=== PATIENT | male | born 1950 | race Caucasian/White ===

== ENCOUNTER 2016-04-09 15:10 | Emergency (ER) | payer MEDICARE, OTHER ==
[~2016-04-09] VITALS: Ht 177.8 cm; Wt 109.1 kg
[2016-04-09 15:17] VITALS: BP 173/95; PULSE 55; RESP 20; O2SAT 100
--- NOTE | 2016-04-09 15:42 | ED.REPORT ---
HPI-Abd Pain M 40 and Over Date of Service Apr 09, 2016 ED Provider: Satish Barron MD Pt is a 66 y/o male w/ a hx of T2DM, hyperlipidemia, presenting to the ED c/o gradually worsening RLQ abdominal pain onset 13:00 today. He was sent from Urgent Care with concern for kidney stones. He c/o associated nausea and vomiting x1. He denies flank pain, diarrhea, fever, chills, bloody stool, hematemesis. His pain was not exacerbated with bumps in the road. He has had some urinary urgency without being able to start his stream. His pain was quite severe at time of onset but is somewhat mild-moderate at current time. He has no history of kidney stones. Nursing Notes Stated Complaint: POSSIBLE KIDNEY STONE, SENT FROM URGENT CARE Chief Complaint: Male Abdominal Pain Nursing Notes Reviewed: Yes Allergies: Coded Allergies: No Known Allergies (Unverified , 04/09/16) Scheduled Tamsulosin (Flomax) 0.4 Mg Capsule 0.4 MG PO DAILY Scheduled PRN Ondansetron ODT (Zofran ODT) 4 Mg Tablet 4 MG PO Q4H PRN PRN For Nausea oxyCODONE-Acetaminophen 5-325 mg (oxyCODONE-Acetaminophen 5-325 mg) 1 Each Tablet 1-2 TAB PO Q6H PRN PRN For Pain General Time Seen by MD: 15:39 Chief Complaint Abdominal pain Hx Obtained From: Patient Arrived By: Walk-in Sudden in Onset?: Yes Onset Occurred: 1 - 4 hours ago Symptom Duration: Since onset Progression since Onset: Gradually worsening Location: : RLQ Quality: Painful Severity: Current: Mild Severity: Maximum: Moderate Past Medical History Past Medical History NIDDM Hyperlipidemia Past Surgical History Denies Smoking History Former Smoker, Never Smoker Social History Alcohol Use: 1-3 per week Ambulatory Status Independent Review of Systems Constitutional: Denies: Chills, Fever Respiratory: Denies: Non-productive cough, Shortness of breath Cardiovascular: Denies: Chest pain GI: Reports: Abdominal pain, Nausea, Vomiting, Denies: Bloody/tarry stool, Diarrhea, Hematemesis Complete sys rev & neg: except as marked. Physical Exam Initial Vital Signs Vital Signs (First) Date Time Temp Pulse Resp B/P Pulse Ox O2 Delivery O2 Flow Rate FiO2 04/09/16 15:17 36.4 55 20 173/95 100 Room Air Initial VS: Reviewed, Vital signs abnormal Head / Eyes: Atraumatic, Normocephalic, PERRL ENT: Mucous membranes moist, Conjunctiva normal, No scleral icterus Neck: Supple, Full range of motion Skin: Warm, Dry, No cyanosis Neurologic: Alert, Oriented, Nonfocal Psychiatric: Mood/affect normal, Behavior normal, Normal thought content General/Constitutional: Awake, Alert, No acute distress, Cooperative, Not toxic appearing Appearance / Presentation: Positive: Uncomfortable (moderate) Respiratory / Chest: Atraumatic, Breath sounds NL, Breath sounds = bilat, No respiratory distress, No rales, No rhonchi, No wheezing, No retractions, No stridor, No chest tenderness, No chest wall deformity, No crepitus Cardiovascular: Heart rate NL, Regular rhythm, Heart sounds NL, No gallop, No murmurs, No rubs, Cap refill not delayed, Peripheral circulation NL Abdomen: Atraumatic, Soft, Non-tender, No guarding, No rebound, No distention, No palpable mass Back: Full range of motion, Painless range of motion, No CVA tenderness Interpretation & Diagnostics Interpretation & Diagnostics: CT KUB: IMPRESSION: 1. Right ureterovesical junction calculus, associated with mild right hydronephrosis. 2. Multiple small nonobstructing right intrarenal calculi. 3. Normal appendix. Dictated by: Dhruv Koroma M.D. on 04/09/2016 at 16:17 Approved by: Dhruv Koroma M.D. on 04/09/2016 at 16:20 Lab Results Interpretation Result Diagram: 04/09/16 1555 04/09/16 1555 Test 04/09/16 15:55 04/09/16 16:18 White Blood Count 14.6th/mm3 (3.8-10.1) Red Blood Count 4.89mil/mm3 (4.40-5.80) Hemoglobin 14.6g/dL (13.8-17.2) Hematocrit 43.9% (41.0-50.0) Mean Corpuscular Volume 89.8fL (81-100) Mean Corpuscular Hemoglobin 29.9pg (27.0-35.0) Mean Corpuscular Hemoglobin Concent 33.3% (32.0-37.0) Red Cell Distribution Width 13.1% (12.3-15.4) Platelet Count 228bil/L (150-400) Neutrophils (%) (Auto) 90.1% (40-74) Lymphocytes (%) (Auto) 6.0% (14-46) Monocytes (%) (Auto) 3.4% (4-12) Eosinophils (%) (Auto) 0.1% (0-5) Basophils (%) (Auto) 0.1% (0-3) Sodium Level 141mEq/L (134-144) Potassium Level 4.1mEq/L (3.5-5.2) Chloride Level 103mEq/L (97-108) Carbon Dioxide Level 22mmol/L (18-29) Blood Urea Nitrogen 25mg/dL (8-27) Creatinine 1.19mg/dL (0.76-1.27) Estimat Glomerular Filtration Rate 65mL/min (>59) Glucose Level 186mg/dL (60-99) Calcium Level 9.2mg/dL (8.5-10.1) Magnesium Level 1.8mg/dL (1.6-2.6) Total Bilirubin 0.4mg/dL (0.0-1.2) Aspartate Amino Transf (AST/SGOT) 23U/L (0-50) Alanine Aminotransferase (ALT/SGPT) 17U/L (0-44) Alkaline Phosphatase 77U/L (25-160) Total Protein 8.0g/dL (6.4-8.4) Albumin 4.6g/dL (3.4-5.0) Lipase 30U/L (13-60) Hold Clarke Top Tube Received (Received) Urine Color Yellow (YELLOW) Urine Appearance Clear (CLEAR,HAZY) Urine pH 5.5 (5.0-8.0) Urine Specific [place] 1.035 (1.003-1.035) Urine Protein Tracemg/dL (NEG,TRACE) Urine Glucose (UA) 250mg/dL (NEGATIVE) Urine Ketones 40mg/dL (NEGATIVE) Urine Occult Blood Large (NEGATIVE) Urine Nitrite Negative (NEGATIVE) Urine Bilirubin Negative (NEGATIVE) Urine Urobilinogen Normalmg/dL (NORMAL) Urine Leukocyte Esterase Negative (NEGATIVE) Urine RBC 11-50/hpf (0-2) Urine WBC 0-5/hpf (0-5) Urine Epithelial Cells Few/hpf (NONE-MOD) Urine Crystals None seen (NONE SEEN) Urine Bacteria None/hpf (NONE-FEW) Urine Hyaline Casts None/lpf (NONE) Urine Granular Casts None seen (NONE SEEN) Urine Waxy Casts None seen (NONE SEEN) Urine Red Blood Cell Casts None seen (NONE SEEN) Urine White Blood Cell Casts None seen (NONE SEEN) Urine Mucus None seen (None Seen) Urine Trichomonas None seen (NONE SEEN) Urine Yeast None (NONE SEEN) Urinalysis Comment None Urine Culture Reflexed Not indicated Re-Eval/Medical Decision Time of Eval: 17:01 Patient Status: Condition improved, Moderate relief, Pain improved Re-Evaluation/Progress Note: Pt rechecked. Discussed imaging and plan for outpatient treatment. Informed pt of plan for treatment. Pt understands and agrees with plan for treatment. F/U instructions and RTER warnings given. All questions addressed. Counseled Regarding: Diagnosis, Lab results, Need for follow-up, When/why to return to ED Discharge & Departure Primary Impression: Right ureteral calculus Additional Impression: Hydronephrosis of right kidney Disposition: Home Vital Signs - All Vital Signs Date Time Temp Pulse Resp B/P Pulse Ox O2 Delivery O2 Flow Rate FiO2 04/09/16 15:17 36.4 55 20 173/95 100 Room Air )( All Prior VS Reviewed: Yes Condition: Stable Patient Instructions: Renal Colic (ED) Additional Instructions: Your CT scan today showed an 8 mm right-sided kidney stone. Stones of this side sometimes pass on their own but sometimes require a procedure to remove it. Take ibuprofen 800 mg every 8 hours. In addition to this you can also take oxycodone/APAP every 6 hours as needed for severe breakthrough pain. Take Flomax once daily to help pass the stone. Take Zofran as needed for nausea and vomiting. Return to the emergency department if you develop a fever, profound weakness or lightheadedness, severe uncontrolled pain, persistent vomiting, or for other concerning symptoms. Follow-up with your primary care doctor in 3-4 days if you symptoms do not improve. A urology consult may be considered at that time. A urologist has been referred to you below if you would like to be evaluated in the mean time. Referrals: Tyshawn Garcia MD (PCP) Mathews,Fam K MD Scribe Attestation Portions of this note were transcribed by Kalia Mueller. I, Dr. Barron personally performed the history, physical exam and medical decision-making; I reviewed and confirmed the accuracy of the information in the transcribed note. Signed by Esdras Arnett, 04/09/16 - 1599 copies to: Tyshawn Garcia MD, Kirk H MD Apr 09, 2016 15:42 KALIA MUELLER Apr 09, 2016 15:52
[2016-04-09] MEDS ORDERED: 0.9% Sodium Chloride 1,000 ML IV ONE (15:47)
[2016-04-09] MEDS ORDERED: MetoCLOpramide 5 mg/mL 2 mL Inj IVPUSH ONE (15:50)
[2016-04-09] MEDS ORDERED: HYDROmorphone 1 mg/mL Inj IVPUSH PRN (15:50)
[2016-04-09 16:00] LABS: BASOPHILS % (AUTO) 0.1 % (0-3); EOSINOPHILS % (AUTO) 0.1 % (0-5); MONOCYTES % (AUTO) 3.4 % (4-12); Mean Corpuscular Hemoglobin 29.9 pg (27.0-35.0); Mean Corpuscular Volume 89.8 fL (81-100); NEUTROPHILS % (AUTO) 90.1 % (40-74); Platelet Count 228 bil/L (150-400)
--- NOTE | 2016-04-09 16:21 | DRSVH ---
PROCEDURE: CT KUB ([id number]) INDICATIONS: right Lower abd pain TECHNIQUE: Noncontrast 5 mm thick sections acquired from the diaphragms to the symphysis. 5 mm thick coronal an d sagittal reformats were then performed. For radiation dose reduction, the following was used: aut omated exposure control, adjustment of mA and/or kV according to patient size. COMPARISON: None. FINDINGS: Image quality: Excellent. Lung bases: Calcified granuloma within the right lung base. Lung bases are otherwise clear. Heart s ize is normal. Urinary system: Both kidneys are normal in size. Multiple small 1-2 mm diameter nonobstructing calcu li within the superior, inferior, and interpolar right kidney. No left nephrolithiasis. There is mild right hydronephrosis and right ureteral dilatation. There is a right ureterovesical junction calculu s, measuring 8 mm and 242 Hounsfield units. No left hydronephrosis nor ureteral dilatation. Urinary b ladder is decompressed. Other solid organs: Liver and spleen are normal in size. Gallbladder is partially contracted. Panc reas is normal in contours. No adrenal nodules. Peritoneum and bowel: Unenhanced bowel loops demonstrate normal wall thickness and caliber. No free fluid or air. There is diverticulosis of the transverse, descending, and sigmoid colon. Appendix is normal. Nodes and vessels: No retroperitoneal or mesenteric adenopathy by size criteria. Aorta and inferior vena cava are normal in caliber. Abdominal wall: No ventral hernias. Pelvis: No free pelvic fluid. No inguinal hernias or adenopathy. Bones: No suspicious bony lesions. No vertebral body compression fractures. IMPRESSION: 1. Right ureterovesical junction calculus, associated with mild right hydronephrosis. 2. Multiple small nonobstructing right intrarenal calculi. 3. Normal appendix. Dictated by: Dhruv Koroma M.D. on 04/09/2016 at 16:17 Approved by: Dhruv Koroma M.D. on 04/09/2016 at 16:20
[2016-04-09 16:30] LABS: Magnesium 1.8 mg/dL (1.6-2.6)
[2016-04-09 16:59] LABS: APPEARANCE,URINE CLEAR (CLEAR,HAZY); COLOR,URINE YELLOW (YELLOW); OCCULT BLOOD,URINE LARGE (NEGATIVE); PH,URINE 5.5 (5.0-8.0); UROBILINOGEN,URINE NORMAL (NORMAL)
[2016-04-09] MEDS ORDERED: OXYC1TAB24 PO (17:00)
[2016-04-09] MEDS ORDERED: TAMS0.4C98 PO (17:00)
[2016-04-09] MEDS ORDERED: ONDA4TAB9 PO (17:00)
[2016-04-09 17:31] VITALS: BP 133/66; PULSE 72; O2SAT 99
== END 2016-04-09 17:32 | disposition home or self-care (01) ==
LOC: SED 15:10
DX: N13.2 Hydronephrosis with renal and ureteral calculous obstruction (principal); E11.9 Type 2 diabetes mellitus without complications; E78.5 Hyperlipidemia, unspecified
CPT/HCPCS: 36415; 74176; 80053; 81000; 81002; 83690; 83735; 85025; 96361; 96374; 96375; 99285; G0463; J1170; J2765; J7030

== ENCOUNTER 2016-09-27 13:00 | Day surgery (SDC) | payer MEDICARE, OTHER ==
[~2016-09-27] VITALS: Ht 177.8 cm; Wt 108.9 kg
[~2016-09-27 13:00] MED LIST: Sodium Chloride LOK Flush 10 mL Syringe IV PRN; fentaNYL-PF 50 mCg/mL 2 mL Inj IVPUSH PRN
[2016-09-27 13:18] VITALS: BP 123/71; PULSE 75; RESP 16; O2SAT 98
[2016-09-27] MEDS ORDERED: ASPI-973 PO (13:19)
[2016-09-27] MEDS ORDERED: ATOR20TA PO (13:19)
[2016-09-27] MEDS: 0.9% Sodium Chloride 1,000 ML IV SCH ×2 (13:23→15:16)
[2016-09-27 15:31] VITALS: BP 121/79; PULSE 83; RESP 16; O2SAT 96
[2016-09-27 15:44] VITALS: BP 104/61; PULSE 80; RESP 16; O2SAT 97
--- NOTE | 2016-09-27 15:44 | ENDO ---
[address] [address] ENDOSCOPY PROCEDURE PATIENT: SAMUEL SMITH : 1950 MR#: [id number] ADMIT: 09/27/2016 JOB ID: [id number] PRIMARY PROVIDER: Tyshawn Garcia MD PROCEDURE: Colonoscopy with cold forceps polypectomy. INDICATION: A 66-year-old male here for screening. EQUIPMENT: PCF H 180 AL. SEDATION: Versed 4 mg and 100 mcg fentanyl. COMPLICATIONS: None identified. BOWEL PREPARATION: Fair, adequate exam. PROCEDURE INFORMATION: After the risks and benefits were explained, written and verbal informed consent was obtained. The patient was brought into the endoscopy suite and placed in the left lateral decubitus position. Sedation was achieved as above. Digital rectal examination accomplished. Mild internal hemorrhoids noted. No other significant pathology appreciated. The scope was introduced into the rectum and advanced to the cecum as identified by the appendiceal orifice and ileocecal valve. The scope was slowly withdrawn to carefully examine the mucosa for any defects or lesions. Multiple direct views were made through the dentate line for exclusion of pathology, the colon was decompressed, and the scope removed from the patient, who tolerated the procedure well. FINDINGS: There were moderate diverticula all through the sigmoid colon. In the rectum there were a couple of diminutive, probably hyperplastic, polyps removed with cold forceps. In the transverse colon there was a small perhaps 4 mm polyp removed with cold forceps. ENDOSCOPIC DIAGNOSES: 1. Colon polyps. 2. Diverticulosis. 3. Hemorrhoids. RECOMMENDATIONS: 1. Await histopathology. 2. If all of these are adenomatous, repeat colonoscopy in three years. If only the transverse colon is adenomatous, then repeat colonoscopy in five years.
--- NOTE | 2016-10-02 14:58 | PATH ---
SURGICAL PATHOLOGY Attending Physician:Sung Alfredo CASE STATUS: Signed Out PATIENT NAME: SAMUEL SMITH PID: [id number] : 1950 DATE COLLECTED:09/27/2016 00:00 SPECIMEN: 1: Colon, Polyp 2: Rectum, Biopsy CLINICAL HISTORY: 1). TRANSVERSE POLYP X1 2). RECTAL POLYPS X2 FINAL DIAGNOSIS: 1.TRANSVERSE COLON POLYP: TUBULAR ADENOMA. 2.RECTAL POLYPS: HYPERPLASTIC POLYP INVOLVING BOTH BIOPSY FRAGMENTS. ICD10 D12.3 GROSS DESCRIPTION: Received are two formalin-filled containers, both labeled with the patient' s name: 1. Received in formalin, labeled with the patient' s name and "trans", is one fragment of duncan, soft tissue measuring 0.2 x 0.2 x 0.2 cm. The fragment is totally submitted in cassette 1A. 2. Received in formalin, labeled with the patient' s name and "rectal", are two fragments of duncan, soft tissue ranging in size from 0.1 x 0.1 x 0.1 cm to 0.2 x 0.1 x 0.1 cm. All fragments are totally submitted in cassette 2A. ([id number]) MICRO DESCRIPTION: See diagnosis. ICD-9 CODES: CPT CODES: 1: 80503 2: 01744 Electronically Signed Out Stewart Nails MD [facility] Pathology [facility] [address] [facility], [place] [address] Technical component performed at [facility], [facility] [address], [address]
== END 2016-09-27 23:59 | disposition home or self-care (01) ==
LOC: END 13:00
PROVIDERS: ATTEND Internal Medicine Gastroenterology
DX: Z12.11 Encounter for screening for malignant neoplasm of colon (principal); D12.3 Benign neoplasm of transverse colon; K63.5 Polyp of colon; K57.30 Diverticulosis of large intestine without perforation or abscess without bleeding; K64.8 Other hemorrhoids; E78.5 Hyperlipidemia, unspecified; Z79.82 Long term (current) use of aspirin; Z79.899 Other long term (current) drug therapy
CPT/HCPCS: 45380; 99153; G0500; J2250; J3010; J7030